=== PATIENT | male | born 1980 | race Caucasian/White ===

== ENCOUNTER 2017-07-26 08:30 | Emergency (ER) | payer MEDICAID, OTHER ==
[2017-07-26] MEDS ORDERED: HYDROmorphone 0.5 MG/0.5 ML SYRINGE IVPUSH ONE (08:46)
--- NOTE | 2017-07-26 08:46 | EDM.PDOC ---
ED HPI GENERAL MEDICAL PROBLEM - General Chief Complaint: Chest Pain Stated Complaint: CHEST PAINS Time Seen by Provider: 07/26/17 08:39 Source of Information: Reports: Patient History Limitations: Reports: No Limitations - History of Present Illness INITIAL COMMENTS - FREE TEXT/NARRATIVE: 37-year-old male presents to the ED with acute onset of epigastric abdominal pain rating up into the retrosternal chest and he states all way up into his neck and throat area. States he awoke with this pain within the last 2 hours. Associated burping and belching with minimal relief. Pain does radiate through to his mid back. Had any similar discomfort. He is a smoker of a pack per day. Rare alcohol user. reports that he last ate about 1:00 to 1:30 in the morning. Therefore he did go to bed with a relatively full stomach. Denies cough or sputum production. It is painful to take a deep breath with any movement of the diaphragm. He is splinting respirations and is hyperventilating at this time. Dates he did break into a mild sweat. Associated mild nausea without vomiting. States his bowels are working fairly normally. Onset: Today Onset Date: 07/26/17 Onset Time: 06:30 Duration: Minutes: Location: Reports: Chest (Epigastrium rating up into the retrosternal chest. Retrosternal chest discomfort rating up into his throat.), Abdomen, Radiates to Quality: Reports: Ache (Mid back.), Sharp (Pain is sharp and stabbing with deep breathing.), Stabbing, Other Severity: Severe (8 out of 10.) Improves with: Reports: Rest Worsens with: Reports: Other, Movement Context: Reports: Other (Pain awoke him from sleep.). Denies: Activity (Deep breathing.), Exercise, Lifting, Sick Contact, Trauma Associated Symptoms: Denies: Confusion, Chest Pain, Cough, cough w sputum, Diaphoresis, Fever/Chills, Headaches, Loss of Appetite, Malaise, Nausea/Vomiting , Rash, Seizure, Shortness of Breath, Syncope, Weakness Treatments [employer]: Reports: Other (see below) (None.) Chest Pain Score (Numeric/FACES): 6 - Related Data Allergies Allergy/AdvReac Type Severity Reaction Status Date / Time menthol Allergy Airway Verified 07/26/17 08:35 Tightness Home Meds: Home Meds Prochlorperazine [Compazine] 10 mg PO Q8H PRN #20 tab 01/24/14 [Rx] Dicyclomine [Bentyl] 20 mg PO Q6H PRN #5 tablet 07/26/17 [Rx] Past Medical History Musculoskeletal History: Reports: Other (See Below) (Currently not working because of bilateral foot pain. Waiting to see a agronomy specialist.) Social & Family History - Tobacco Use Smoking Status *Q: Current Every Day Smoker Years of Tobacco use: 20 - Recreational Drug Use Recreational Drug Use: No - Living Situation & Occupation Living situation: Reports: Occupation: Unemployed ED ROS GENERAL - Review of Systems Review Of Systems: See Below Constitutional: Reports: No Symptoms HEENT: Reports: No Symptoms Respiratory: Reports: No Symptoms Cardiovascular: Reports: Chest Pain Endocrine: Reports: No Symptoms (See history of present illness) GI/Abdominal: Reports: Abdominal Pain : Reports: No Symptoms Musculoskeletal: Reports: No Symptoms Skin: Reports: No Symptoms Neurological: Reports: No Symptoms Psychiatric: Reports: No Symptoms ED EXAM, GENERAL - Physical Exam Exam: See Below Exam Limited By: No Limitations General Appearance: Alert, WD/WN, Moderate Distress (Appears to be moderate discomfort with hyperventilation syndrome at this time. He is vital signs reveal that he is mildly hypertensive and tachycardic at 10 2/m. O2 sats are 100 % on room air.) Eye Exam: Bilateral Eye: Normal Inspection Throat/Mouth: Normal Inspection, Normal Lips, Normal Teeth, Normal Oropharynx Head: Atraumatic, Normocephalic Neck: Normal Inspection, Supple, Non-Tender, Full Range of Motion. No: Lymphadenopathy (L), Lymphadenopathy (R) Respiratory/Chest: No Respiratory Distress, Lungs Clear, Normal Breath Sounds, No Accessory Muscle Use Cardiovascular: Normal Peripheral Pulses, Regular Rate, Rhythm, No Edema, No Gallop, No JVD, No Murmur Peripheral Pulses: 3+: Posterior Tibial (L), Posterior Tibial (R), Dorsalis Pedis (L), Dorsalis Pedis (R) GI/Abdominal: Normal Bowel Sounds, Soft, Non-Tender, No Organomegaly, No Abnormal Bruit (Moderately obese.), Tender (Very tender in the epigastrium and along the right costal margin.), Other (Male) Exam: No Hernia Back Exam: Normal Inspection, Full Range of Motion Extremities: Normal Inspection, Normal Range of Motion, Non-Tender, No Pedal Edema Neurological: Alert, Oriented, CN II-XII Intact, Normal Cognition, Normal Gait Psychiatric: Normal Affect, Normal Mood Skin Exam: Warm, Dry, Intact, Normal Color, No Rash EKG INTERPRETATION EKG Date: 07/26/17 Time: 08:40 Rhythm: Other Rate (Beats/Min): 102 [place]: Normal P-Wave: Present QRS: Other (Decreased voltage in limb leads.) ST-T: Normal QT: Normal EKG Interpretation Comments: Essentially normal ECG Course - Vital Signs Last Recorded V/S: Last Vital Signs Temp 36.8 C 07/26/17 08:35 Pulse 104 H 07/26/17 08:35 Resp 32 H 07/26/17 08:35 BP 141/101 H 07/26/17 08:35 Pulse Ox 100 07/26/17 08:35 - Orders/Labs/Meds Orders: Active Orders 24 hr Category Date Time Status EKG Documentation Completion [RC] STAT Care 07/26/17 08:48 Active Dextrose 5%-0.9% NaCl [Dextrose 5%-Normal Saline] 1,000 Med 07/26/17 09:00 Active ml IV ASDIRECTED Medication Orders Dextrose/Sodium Chloride (Dextrose 5%-Normal Saline) 1,000 mls @ 150 mls/hr IV ASDIRECTED LUZ Last Admin: 07/26/17 09:00 Dose: 150 mls/hr Labs: Laboratory Tests 07/26/17 07/26/17 Range/Units 08:40 08:40 WBC 8.84 (4.23-9.07) K/mm3 RBC 5.85 (4.63-6.08) M/mm3 Hgb 17.3 (13.7-17.5) gm/L Hct 50.0 (40.1-51.0) % MCV 85.5 (79.0-92.2) fl MCH 29.6 (25.7-32.2) pg MCHC 34.6 (32.2-35.5) g/dl RDW Std Deviation 41.9 (35.1-43.9) fL Plt Count 339 H (163-337) K/mm3 MPV 9.8 (9.4-12.3) fl Neutrophils % (Manual) 74 H (40-60) % Band Neutrophils % 0 (0-10) % Lymphocytes % (Manual) 21 (20-40) % Atypical Lymphs % 0 % Monocytes % (Manual) 3 (2-10) % Eosinophils % (Manual) 1 (0.8-7.0) % Basophils % (Manual) 1 (0.2-1.2) Platelet Estimate Adequate RBC Morph Comment Normal Sodium 139 (136-145) mEq/L Potassium 4.5 (3.5-5.1) mEq/L Chloride 106 (98-107) mEq/L Carbon Dioxide 25 (21-32) mEq/L Anion Gap 12.5 (5-15) BUN 14 (7-18) mg/dL Creatinine 1.1 (0.7-1.3) mg/dL Est Cr Clr Drug Dosing TNP Estimated GFR (MDRD) > 60 (>60) mL/min BUN/Creatinine Ratio 12.7 L (14-18) Glucose 128 H (74-106) mg/dL Calcium 9.5 (8.5-10.1) mg/dL Total Bilirubin 0.3 (0.2-1.0) mg/dL AST 26 (15-37) U/L ALT 66 H (16-63) U/L Alkaline Phosphatase 109 (46-116) U/L CK-MB (CK-2) 1.0 (0-3.6) ng/ml Troponin I < 0.017 (0.00-0.056) ng/mL C-Reactive Protein 0.7 (<1.0) mg/dL Total Protein 7.5 (6.4-8.2) g/dl Albumin 4.0 (3.4-5.0) g/dl Globulin 3.5 gm/dL Albumin/Globulin Ratio 1.1 (1-2) Amylase 57 (25-115) U/L Meds: Medications Generic Name Dose Route Start Last Admin Trade Name Freq PRN Reason Stop Dose Admin Dextrose/Sodium Chloride 1,000 mls @ 150 mls/hr 07/26/17 09:00 07/26/17 09:00 Dextrose 5%-Normal Saline IV 150 mls/hr ASDIRECTED LUZ Administration Discontinued Medications Generic Name Dose Route Start Last Admin Trade Name Freq PRN Reason Stop Dose Admin Hydromorphone HCl 0.5 mg 07/26/17 08:46 07/26/17 09:16 Dilaudid IVPUSH 07/26/17 08:47 0.5 mg ONETIME ONE Administration Hyoscyamine 0.125 mg 07/26/17 08:49 07/26/17 09:07 Hyomax-Sl SL 07/26/17 08:50 0.125 mg ONETIME ONE Administration Lorazepam 1 mg 07/26/17 08:47 07/26/17 09:00 Ativan IVPUSH 07/26/17 08:48 1 mg ONETIME ONE Administration Metoclopramide HCl 7.5 mg 07/26/17 08:47 07/26/17 09:09 Reglan IVPUSH 07/26/17 08:48 7.5 mg ONETIME ONE Administration - Radiology Interpretation Free Text/Narrative:: 87-year-old male attends the ED reporting that he awoke with severe retrosternal chest discomfort rating up into his neck and throat about 2 hours ago. Burping and belching did not seem to relieve the discomfort. He has not yet eaten for today. States he felt fine when he went to sleep. On examination he is very tender in the epigastrium and along the right costal margin. This suggests a GI origin to his chest pain. Lungs were clear up O2 sats are 100% on room air. He is splinting respirations I suspect due to diaphragmatic irritation from hiatal hernia. Plan Levsin 0.125 mg sublingual. Given Dilaudid 0.5 mg IV Ativan 1 mg IV and Reglan 7.5 mg IV. ECG done by triage nurse shows sinus rhythm at 10 2/m with no signs of ischemia. There is decreased voltage in the limb leads. Some consideration should be given to the left atrial hypertrophy. One view chest x-ray to be done as well his routine labs including cardiac markers. - Re-Assessments/Exams Free Text/Narrative Re-Assessment/Exam: 07/26/17 09:23 1 view chest x-ray is been completed. He is rotated slightly to the right. BX silhouette is within normal limits. The superior mediastinum looks a little widened but is a symmetrical appearance. I think it is vascular shadows. Visualized portions the lungs are clear. 07/26/17 09:42 patient is feeling much improved. Hyperventilation state has resolved. Patient is almost able to fill take a full deep breath without any pain at this time. 07/26/17 09:59 Labs are back. Total white count is 8.84 with 74% neutrophils and no bands. Hemoglobin is 17.3 with hematocrit of 50 suggesting a moderate degree of hemoconcentration. Platelet count is 339,000. Sodium is 139 with a potassium of 4.5. Chloride is 106 with a bicarbonate 25. Anion gap is 12.5. BUN is 14. Creatinine is 1.1. Glucose is 128. Calcium is 9.5 with a bilirubin of 0.3. AST is 26. AST is 66. CK-MB fraction is 1.0 troponin I is less than 0.017. Amylase is 57. 07/26/17 10:41 patient is a little drowsy from the medication but otherwise his pain is completely gone. I suspect he strongly that he has a hiatal hernia and that's what got stuck this morning. Advised plenty of fluids today and something heavy to eat such as oatmeal worse etc. to help pull his stomach back down into the abdomen. Will send him home with Bentyl 20 mg every 6 hours to use for similar type pain. 5 tablets were provided. Departure - Departure Time of Disposition: 10:42 Disposition: Home, Self-Care 01 Condition: Fair Clinical Impression: Non-cardiac chest pain, Hiatal hernia Prescriptions: Dicyclomine [Bentyl] 20 mg PO Q6H PRN #5 tablet PRN Reason: Abdominal cramps/diarrhea Instructions: Hiatal Hernia, Nonspecific Chest Pain Referrals: PCP,None [Primary Care Provider] - Forms: ED Department Discharge Additional Instructions: Evaluation the emergency room this morning in regards to the development of epigastric pain radiating up into the chest and even up into the throat. Awoke with this type of pain this morning. Burping and belching perhaps helps a little bit. Heart tracing proved to be normal. Chest x-ray also proved to also proved to be completely normal other than showing a little bit of volume depletion. Suggest taking plenty of fluids today like water and Gatorade , Powerade. The weight of the fluid will help of the stomach back down into the abdomen where prolongs. Medications in the ED to relax the diaphragm and hopefully allow the stomach to return back into the abdomen where prolongs. Eating something heavy later this morning such as oatmeal breakfast meal should help relieve the pain. The díaz is trying not to eat for 3 hours before lying down to sleep. Sometimes raising the head of the bed 4" ie two 2x4`s under the head of the bed may help prevent hiatal hernia. Weight loss, even 10 pounds can make a difference in terms of making it less likely for you to develop a sliding hiatal hernia. If positive persist follow-up with your personal physician in this regard. May use Bentyl 20 mg every 6 hours if needed for similar type pain X a good hour to work but often relieves the spasm of the diaphragm caused by hiatal hernia. - My Orders Last 24 Hours: My Active Orders 07/26/17 08:48 EKG Documentation Completion [RC] STAT 07/26/17 09:00 Dextrose 5%-0.9% NaCl [Dextrose 5%-Normal Saline] 1,000 ml IV ASDIRECTED - Assessment/Plan Last 24 Hours: My Active Orders 07/26/17 08:48 EKG Documentation Completion [RC] STAT 07/26/17 09:00 Dextrose 5%-0.9% NaCl [Dextrose 5%-Normal Saline] 1,000 ml IV ASDIRECTED
[2017-07-26] MEDS ORDERED: LORazepam 2 MG/ML SDV IVPUSH ONE (08:47)
[2017-07-26] MEDS ORDERED: Hyoscyamine 0.125 MG Tab.SL SL ONE (08:49)
[2017-07-26] MEDS ORDERED: Dextrose 5%-0.9% NaCl 1,000 ML IV SCH (09:00)
[2017-07-26] MEDS: Metoclopramide 10 MG/2 ML SDV IVPUSH ONE ×2 (09:08→09:09)
--- NOTE | 2017-07-26 09:11 | CR ---
Chest: Frontal view of the chest was obtained. Comparison: No previous study. Slightly prominent mediastinal soft tissues are noted. Heart size is normal. Lungs are clear. Bony structures are unremarkable. Impression: 1. Slightly prominent paratracheal soft tissues. This is most likely incidental although I believe a contrast-enhanced chest CT should be performed to completely rule out adenopathy. 2. Frontal chest x-ray is otherwise unremarkable. Diagnostic code #9
== END 2017-07-26 11:09 | disposition home or self-care (01) ==
LOC: JD.ED 08:30
DX: K44.9 Diaphragmatic hernia without obstruction or gangrene (principal); F17.210 Nicotine dependence, cigarettes, uncomplicated; Z88.8 Allergy status to other drugs, medicaments and biological substances; Z79.899 Other long term (current) drug therapy
CPT/HCPCS: 36415; 71045; 80053; 82150; 82553; 84484; 85025; 86140; 93005; 96361; 96374; 96375; 99285; A9270; J1170; J2060; J2765; J7042; 93010; 99284

== ENCOUNTER 2018-08-21 08:33 | Emergency (ER) | payer SELFPAY ==
[2018-08-21] MEDS ORDERED: Alum Hydrox/Mag Hydrox/Simeth 30 ML, Lidocaine 2% 15 ML PO STA ×2 (09:34)
[2018-08-21] MEDS ORDERED: Ondansetron 4 MG/2 ML SDV IVPUSH ONE (09:34)
[2018-08-21] MEDS ORDERED: HYDROmorphone 1 MG/ML Syringe IVPUSH STA (09:34)
--- NOTE | 2018-08-21 09:42 | EDM.PDOC ---
ED HPI GENERAL MEDICAL PROBLEM - General Chief Complaint: Abdominal Pain Stated Complaint: ABDOMINAL PAIN Time Seen by Provider: 08/21/18 08:43 Source of Information: Reports: Patient, Family (), RN Notes Reviewed History Limitations: Reports: No Limitations - History of Present Illness INITIAL COMMENTS - FREE TEXT/NARRATIVE: The patient states that he was woken up around 05:30 this morning with epigastric pain radiating through to his mid back. The patient is unable to describe the character of the pain, other than it feels like "there's something in there". The patient has not identified any modifiers. He denies having nausea or vomiting. No recent fever. No recent constipation. The patient reports watery diarrhea yesterday and 2 days ago, that he attributes to having taken a Z-Kendell for "slight strep throat", that he finished 2 days ago. The patient has had similar pain in the past. He has been diagnosed with cholelithiasis, both by CT scan and ultrasound of the right upper quadrant. He spoke to a surgeon at [facility] some time in the past. They recommended that the patient undergo an EGD, and offered cholecystectomy, however, the patient does not have medical insurance, therefore he has not received either. No prior EGD, colonoscopy, or HIDA scan. The patient states that he was previously prescribed dicyclomine, but only 5 tablets, and he does not currently have any left. The patient does not have a PCP. Upper Abdomen Pain Score (Numeric/FACES): 8 - Related Data Allergies Allergy/AdvReac Type Severity Reaction Status Date / Time menthol Allergy Airway Verified 08/21/18 08:47 Tightness Home Meds: Home Meds Dicyclomine [Bentyl] 20 mg PO Q6HR PRN 08/21/18 [History] Past Medical History Gastrointestinal History: Reports: Cholelithiasis, Other (See Below) (Hepatic steatosis) Psychiatric History: Reports: Anxiety (untreated), Depression (untreated) Endocrine/Metabolic History: Reports: Obesity/BMI 30+ - Past Surgical History HEENT Surgical History: Reports: Oral Surgery (wisdom teeth extraction) GI Surgical History: Reports: Appendectomy Social & Family History - Family History Family Medical History: Noncontributory - Tobacco Use Smoking Status *Q: Current Every Day Smoker Years of Tobacco use: 21 Packs/Tins Daily: 1 Packs/Tins Daily Comment: Down from 1.5 ppd - Caffeine Use Caffeine Use: Reports: Coffee - Alcohol Use Alcohol Use History: Yes Alcohol Use Frequency: Rarely - Recreational Drug Use Recreational Drug Use: Yes Drug Use in Last 12 Months: No Recreational Drug Type: Reports: Marijuana/Hashish (last smoked when 18 years old) - Living Situation & Occupation Living situation: Reports: , with Spouse Occupation: Unemployed ED ROS GENERAL - Review of Systems Review Of Systems: ROS reveals no pertinent complaints other than HPI. ED EXAM, GI/ABD - Physical Exam Exam: See Below Exam Limited By: No Limitations General Appearance: Alert, WD/WN, Mild Distress (Appears uncomfortable) Eyes: Bilateral: Normal Appearance, EOMI Ears: Normal External Exam, Hearing Grossly Normal Nose: Normal Inspection Throat/Mouth: Normal Inspection, Normal Lips, Normal Voice, No Airway Compromise Head: Atraumatic, Normocephalic Neck: Normal Inspection, Full Range of Motion Respiratory/Chest: No Respiratory Distress, Lungs Clear, Normal Breath Sounds, No Accessory Muscle Use Cardiovascular: Normal Peripheral Pulses, Regular Rate, Rhythm, No Gallop, No JVD, No Murmur, No Rub GI/Abdominal Exam: Normal Bowel Sounds, Soft, No Organomegaly, No Distention, No Abnormal Bruit, No Mass, Tender (Exquisite, to the epigastrium. Less tender to the right upper quadrant, and nontender elsewhere.), Other (Obese) (Male) Exam: Deferred Rectal (Males) Exam: Deferred Back Exam: Normal Inspection, Full Range of Motion. No: CVA Tenderness (L), CVA Tenderness (R) Extremities: Normal Inspection, Normal Range of Motion, No Pedal Edema, Normal Capillary Refill Neurological: Alert, Oriented, Normal Cognition, No Motor/Sensory Deficits Psychiatric: Normal Affect Skin Exam: Warm, Dry, Intact, Normal Color, No Rash Course - Vital Signs Last Recorded V/S: Last Vital Signs Temp 36.1 C 08/21/18 08:42 Pulse 95 08/21/18 08:42 Resp 20 08/21/18 08:42 BP 155/92 H 08/21/18 08:42 Pulse Ox 100 08/21/18 08:42 - Orders/Labs/Meds Orders: Active Orders 24 hr Category Date Time Status Abdomen Pelvis w Cont [CT] Stat Exams 08/21/18 09:35 Taken Sodium Chloride 0.9% [Normal Saline] 1,000 ml Med 08/21/18 09:45 Active IV ASDIRECTED Sodium Chloride 0.9% [Saline Flush] Med 08/21/18 10:33 Active 10 ml FLUSH ONETIME PRN Medication Orders Sodium Chloride (Normal Saline) 1,000 mls @ 150 mls/hr IV ASDIRECTED LUZ Last Admin: 08/21/18 09:58 Dose: 150 mls/hr Sodium Chloride (Saline Flush) 10 ml FLUSH ONETIME PRN PRN Reason: IV FLUSH Last Admin: 08/21/18 10:43 Dose: 10 ml Labs: Laboratory Tests 08/21/18 08/21/18 Range/Units 09:55 09:55 WBC 12.26 H (4.23-9.07) K/mm3 RBC 6.13 H (4.63-6.08) M/mm3 Hgb 17.7 H (13.7-17.5) gm/L Hct 51.5 H (40.1-51.0) % MCV 84.0 (79.0-92.2) fl MCH 28.9 (25.7-32.2) pg MCHC 34.4 (32.2-35.5) g/dl RDW Std Deviation 41.9 (35.1-43.9) fL Plt Count 353 H (163-337) K/mm3 MPV 9.2 L (9.4-12.3) fl Neutrophils % (Manual) 76 H (40-60) % Band Neutrophils % 0 (0-10) % Lymphocytes % (Manual) 21 (20-40) % Atypical Lymphs % 0 % Monocytes % (Manual) 3 (2-10) % Eosinophils % (Manual) 0 L (0.8-7.0) % Basophils % (Manual) 0 L (0.2-1.2) Toxic Granulation Moderate Platelet Estimate Increased Plt Morphology Comment Normal RBC Morph Comment Normal Sodium 139 (136-145) mEq/L Potassium 4.3 (3.5-5.1) mEq/L Chloride 103 (98-107) mEq/L Carbon Dioxide 25 (21-32) mEq/L Anion Gap 15.3 H (5-15) BUN 16 (7-18) mg/dL Creatinine 1.2 (0.7-1.3) mg/dL Est Cr Clr Drug Dosing 71.89 mL/min Estimated GFR (MDRD) > 60 (>60) mL/min BUN/Creatinine Ratio 13.3 L (14-18) Glucose 120 H (74-106) mg/dL Calcium 9.7 (8.5-10.1) mg/dL Total Bilirubin 0.3 (0.2-1.0) mg/dL AST 23 (15-37) U/L ALT 68 H (16-63) U/L Alkaline Phosphatase 122 H (46-116) U/L Total Protein 7.8 (6.4-8.2) g/dl Albumin 4.1 (3.4-5.0) g/dl Globulin 3.7 gm/dL Albumin/Globulin Ratio 1.1 (1-2) Lipase 133 (73-393) U/L Meds: Medications Generic Name Dose Route Start Last Admin Trade Name Suzette PRN Reason Stop Dose Admin Sodium Chloride 1,000 mls @ 150 mls/hr 08/21/18 09:45 08/21/18 09:58 Normal Saline IV 150 mls/hr ASDIRECTED LUZ Administration Sodium Chloride 10 ml 08/21/18 10:33 08/21/18 10:43 Saline Flush FLUSH 10 ml ONETIME PRN Administration IV FLUSH Discontinued Medications Generic Name Dose Route Start Last Admin Trade Name Suzette PRN Reason Stop Dose Admin Al Hydroxide/Mg Hydroxide 30 0 ml 08/21/18 09:34 08/21/18 09:48 ml/ Lidocaine HCl 15 ml PO 08/21/18 09:35 45 ml ONETIME STA Administration Diatrizoate Meglum/Diatrizoate Sod 120 ml 08/21/18 10:33 08/21/18 10:43 Gastrografin 37% PO 08/21/18 10:34 90 ml ONETIME ONE Administration Famotidine 40 mg 08/21/18 11:36 Pepcid PO 08/21/18 11:37 ONETIME STA Hydromorphone HCl 1 mg 08/21/18 09:34 08/21/18 09:54 Dilaudid IVPUSH 08/21/18 09:35 1 mg ONETIME STA Administration Iohexol 100 ml 08/21/18 10:32 08/21/18 10:43 Omnipaque-300 IVPUSH 08/21/18 10:33 100 ml ONETIME ONE Administration Ondansetron HCl 4 mg 08/21/18 09:34 08/21/18 09:55 Zofran IVPUSH 08/21/18 09:35 4 mg ONETIME ONE Administration - Re-Assessments/Exams Free Text/Narrative Re-Assessment/Exam: 08/21/18 09:37 The patient's history and physical examination are most consistent with pancreatitis, and since the patient has a known history of cholelithiasis, I am concerned about gallstone pancreatitis. I want to make sure that this is not an unusual presentation of GERD. GERD may cause epigastric pain, but should not cause tenderness. I have ordered a GI cocktail to rule this etiology out. In addition, I have ordered blood work and a CT scan of the abdomen and pelvis with oral and IV contrast to evaluate for pancreatitis or other causative etiology. In the meantime, the patient will be treated with Dilaudid, Zofran, and IV fluid. Other than the GI cocktail and oral contrast, we will keep the patient NPO. 08/21/18 10:19 The patient reports that he DID have some improvement in his epigastric pain after drinking the GI cocktail. He has since been given IV Dilaudid, and now feels substantially better. 08/21/18 11:29 CT of the abdomen and pelvis with oral and IV contrast is read by Gurpreet as: 1. Gallbladder disease. Recommend sonography. (The body of the report reads "Gallstone. There appears to be mild gallbladder wall thickening with possible hyperemia." 2. No CT evidence for acute pancreatitis. 08/21/18 11:48 Test results discussed with the patient and his . It is not clear if the patient's epigastric pain is from from his stomach, such as with gastritis or GERD, or if it is coming from his gallbladder, with cholecystitis. On the one hand, he had relief of symptoms with a GI cocktail, which would suggest gastritis or GERD, but on the other hand, he is tender to his epigastrium, which is not consistent with gastritis or GERD, and a CT scan which showed mild inflammation of his gallbladder wall. I will discharge the patient home with recommendation that he start taking over- the-counter famotidine twice a day, and try to eat as low fat a diet as possible. I will refer him to Dr. Randolph for further evaluation that may include an ultrasound of the right upper quadrant, a HIDA scan, and, possibly, an EGD. Departure - Departure Time of Disposition: 11:50 Disposition: Home, Self-Care 01 Condition: Good Clinical Impression: Epigastric abdominal pain of unknown etiology - Discharge Information *PRESCRIPTION DRUG MONITORING PROGRAM REVIEWED*: Not Applicable *COPY OF PRESCRIPTION DRUG MONITORING REPORT IN PATIENT GRAH[place]: Not Applicable Referrals: Zuri Randolph MD [Physician] - Forms: ED Department Discharge Additional Instructions: You were seen in the emergency room for upper abdominal pain. Workup in the ER included blood work and a CT scan of your abdomen and pelvis. You were also given a GI cocktail to drink. You had some relief from the GI cocktail, indicating that the cause of your pain may be due to gastritis or acid reflux. Your blood work was unremarkable, but the CT scan of your abdomen and pelvis found gallbladder wall thickening, suggesting that you may have gallbladder disease. You have been started on the antacid medicine famotidine (Pepcid). Famotidine is available [id number], and generic is just as good as the name brand. Take one tablet of famotidine every 12 hours, starting this evening, Wednesday, . We recommend that you eat as low-fat a diet as possible. We recommend that you follow-up with the Surgeon Dr. Zuri Randolph at the next available appointment. She can perform additional tests to determine if your pain is coming from your stomach or from your gallbladder. If any other problems, please do not hesitate to return to the ER. - My Orders Last 24 Hours: My Active Orders 08/21/18 09:35 Abdomen Pelvis w Cont [CT] Stat 08/21/18 09:45 Sodium Chloride 0.9% [Normal Saline] 1,000 ml IV ASDIRECTED 08/21/18 10:33 Sodium Chloride 0.9% [Saline Flush] 10 ml FLUSH ONETIME PRN - Assessment/Plan Last 24 Hours: My Active Orders 08/21/18 09:35 Abdomen Pelvis w Cont [CT] Stat 08/21/18 09:45 Sodium Chloride 0.9% [Normal Saline] 1,000 ml IV ASDIRECTED 08/21/18 10:33 Sodium Chloride 0.9% [Saline Flush] 10 ml FLUSH ONETIME PRN
[2018-08-21] MEDS ORDERED: Sodium Chloride 0.9% 1,000 ML IV SCH (09:45)
[2018-08-21] MEDS ORDERED: Iohexol 647 MG/ML 100 ML Bottle IVPUSH ONE (10:32)
[2018-08-21] MEDS ORDERED: Sodium Chloride 0.9% 10 ML Syringe FLUSH PRN (10:33)
[2018-08-21] MEDS ORDERED: Diatrizoate Meglumine/Diatrizoate Sodium 37% 120 ML Bottle PO ONE (10:33)
[2018-08-21] MEDS ORDERED: Famotidine 20 MG Tab PO STA (11:36)
--- NOTE | 2018-08-22 08:30 | CT ---
CT abdomen and pelvis Technique: Multiple axial sections were obtained from above the dome of the diaphragm inferiorly through the pubic symphysis. Intravenous and oral contrast was utilized. Delayed images were also obtained through the abdomen and pelvis. Comparison: No prior abdominal or pelvic CT exam, previous abdominal ultrasound of 02/21/18. Findings: Small portion of the visualized lung bases shows nothing acute. Liver shows mild fatty infiltration. No focal abnormality is appreciated within the liver. Spleen appears within normal limits. Gallbladder shows questionable surrounding inflammatory change with slightly hyperemic gallbladder wall. Large gallstone is noted within the gallbladder neck measuring 1.0 cm. Cyst is noted within the right kidney within the upper pole measuring 2.5 cm. Kidneys are otherwise unremarkable. Delayed images show contrast excretion into nondilated ureters. Contrast is seen within the bladder. Adrenal glands show no nodule. Pancreas is normal. Aorta shows no aneurysm. No retroperitoneal adenopathy or mesenteric abnormalities are seen. No pelvic mass or adenopathy is seen. No free fluid or inflammatory changes seen. Appendix not visualized with certainty. No free fluid or inflammatory change is seen. No bowel dilatation is identified. Bone window settings were reviewed which appear within normal limits for the patient's age. Incidental small fat-containing umbilical hernia is noted. Impression: 1. Questionable hyperemic gallbladder wall with mild surrounding inflammatory change and large gallstone within the gallbladder neck. Difficult to exclude changes of cholecystitis. Ultrasound could be obtained to confirm if clinically needed. 2. Fatty infiltration of the liver with incidental upper pole renal cyst. 3. No additional abnormality is seen on CT study of the abdomen and pelvis. Diagnostic code #3 I agree with preliminary report from [facility], finalized on 08/21/18, 12:27 PM Central Time
== END 2018-08-21 12:25 | disposition home or self-care (01) ==
LOC: JD.ED 08:33
DX: R10.13 Epigastric pain (principal); F17.210 Nicotine dependence, cigarettes, uncomplicated; Z88.8 Allergy status to other drugs, medicaments and biological substances
CPT/HCPCS: 36415; 74177; 80053; 83690; 85007; 85027; 96361; 96374; 96375; 99284; A9270; J1170; J2405; J7040; Q9963; Q9967